=== PATIENT | male | born 1990 | race Caucasian/White ===

== ENCOUNTER → 2017-03-27 | Outpatient (CLI) | payer BC ==
--- NOTE | 2017-03-27 09:00 | DIAGNOSTIC IMAGING REPORT ---
FUSION CT SINUSES W/O HISTORY: R09.81 Nasal [id number] Rhinitis TECHNIQUE: Multiaxial CT images of the sinuses were performed reformatted in the coronal plane without the use of intravenous contrast. Fusion CT sinus protocol was also obtained. COMPARISON STUDY: Facial CT 05/18/2009. FINDINGS: The frontal sinuses, ethmoid air cells, sphenoid sinuses, bilateral maxillary sinuses, and mastoid air cells are clear. No fluid levels within the paranasal sinuses. Multiple old, healed facial fractures with small metallic plates and screws at the anterior treadwell of the maxillary sinuses and right lateral orbit. The nasal septum is essentially midline. The bilateral ostiomeatal units are patent. The right ethmoid roof and cuneiform plates are positioned up to 2 mm inferior to the left side. The lamina papyracea and orbital floors are intact. A 1.4 x 1.0 cm bony defect within the posterior lateral wall the right maxillary sinus. This is likely due to old trauma. There are few small bony septations within the bilateral maxillary sinuses, left greater than right. The visualized brain parenchyma and orbits are unremarkable.. IMPRESSION: 1. The paranasal sinuses and mastoid air cells are clear. 2. Old posttraumatic and postoperative changes within the facial bones. 3. A 1.4 x 1.0 cm bony defect within the posterior lateral wall of the right maxillary sinus. This is likely due to old trauma. Electronically signed by: Steven Sherman M.D. 03/27/2017 8:59 AM Dictated Date/Time: 03/27/2017 8:54 AM
== END | disposition home or self-care (01) ==
LOC: C.CTS 08:39
PROVIDERS: ATTEND Physician Assistant
DX: R09.81 Nasal congestion (principal); J31.0 Chronic rhinitis

== ENCOUNTER → 2017-05-20 | Outpatient (CLI) | payer BC ==
--- NOTE | 2017-05-23 10:45 | POLYSOMNOGRAPH REPORT ---
CLINICAL DATA: A 27-year-old male with BMI of 30.8, referred by myself and Dr. Riley for evaluation of possible sleep apnea. The patient does have fatigue, snoring and gasping episodes at night. He does have poor sleep quality. On the evening of 05/21/2017, a home sleep apnea test was performed using a [employer] type 3 monitor. RECORDING RESULTS: Total recording time was 8.4 hours. Patient monitoring time and estimated sleep time was 7.5 hours. RESPIRATORY DATA: No evidence of clinically significant sleep apnea was seen. The HARRIS was 3.9. There were 6 obstructive, 1 mixed and 2 central apneic episodes. There were 20 hypopneic episodes. The longest respiratory event was 28 seconds. OXIMETRY DATA: Very transient hypoxemia was seen. Oxygen micah was 87%. Mean saturation was 95%. Time below 89% was 1 minute. HEART RATE DATA: Heart rates ranged from 43-54 beats per minute. SNORING DATA: Some snoring was seen during the test. IMPRESSION: No evidence of clinically significant sleep apnea/hypopnea or nocturnal hypoxemia. RECOMMENDATIONS: The patient should continue to practice good sleep hygiene. DECLAN
== END | disposition home or self-care (01) ==
LOC: C.NEUR 10:04
PROVIDERS: ATTEND Internal Medicine Pulmonary Disease
DX: G47.33 Obstructive sleep apnea (adult) (pediatric) (principal); R06.83 Snoring; R09.81 Nasal congestion; J34.3 Hypertrophy of nasal turbinates; R53.83 Other fatigue